=== PATIENT | male | born 1940 | race Caucasian/White ===

== ENCOUNTER → 2017-09-30 | Outpatient (CLI) | payer MEDICARE, OTHER ==
[~2017-09-30] VITALS: Ht 157.5 cm; Wt 70.0 kg
[~2017-09-30] MED LIST: AMARYL 2MG T2 MG/TAB PO; CHOLESTEROL MA600 MG PO; CRANBERRY1 CAP PO; GLUCOPHAGE XR500 M2 PO; JANUVIA25 MG; METFORMIN500 MG PO; NATURE'S BLEND400 I1 PO; [UNRECOGNIZED DRUG - REMARK] PO
[2017-09-30 10:15] VITALS: BP 135/64
[2017-09-30 10:34] LABS: EOS # 0.1 (0.04-0.40); EOS % 1.7 % (0.0-4.0); HEMOGLOBIN 14.2 g/dL (13.5-18.0); LYMPH# 0.9 (1.50-4.00); MEAN CELL VOLUME 91 fl (78-100); MEAN CORPUSCULAR HEMOGLOBIN 31 pg (27-31); MEAN CORPUSCULAR HGB CONC 35 g/dL (33-37); MEAN PLATELET VOLUME 9.5 fl (7.4-10.4); MONO # 0.5 (0.20-0.80); NEU # 3.9 (1.40-6.50); PLATELET COUNT 171 K/mm3 (130-400); RED BLOOD COUNT 4.53 M/mm3 (4.20-5.60); RED CELL DISTRIBUTION WIDTH 12.4 % (11.5-14.5); WHITE BLOOD COUNT 5.4 K/mm3 (4.8-10.8)
[2017-09-30 10:40] LABS: ALBUMIN 4.2 g/dL (3.5-5.0); CALCIUM 9.3 mg/dL (8.4-10.2); POTASSIUM 3.9 mmol/L (3.6-5.0); TOTAL BILIRUBIN 0.7 mg/dL (0.2-1.3); TOTAL PROTEIN 6.9 g/dL (6.3-8.2)
[2017-09-30 11:10] LABS: PH-URINE 6.5 (5.0 - 8.0); URINE APPEARANCE CLEAR; URINE BILIRUBIN NEGATIVE (NEGATIVE); URINE BLOOD NEGATIVE (NEGATIVE); URINE COLOR YELLOW; URINE KETONE NEGATIVE (NEGATIVE); URINE LEUKOCYTE ESTERASE NEGATIVE (NEGATIVE); URINE NITRATE NEGATIVE (NEGATIVE); URINE PROTEIN(semi-quant) NEGATIVE (NEGATIVE); URINE UROBILINOGEN NORMAL (NORMAL); URINE WBC 0-1 /hpf (0-3)
[2017-09-30 11:45] LABS: ERYTHROCYTE SEDIMENTATION RATE 8 mm/hr (0-20)
[2017-09-30 23:53] LABS: CREATININE OTHER SOURCE 20 mg/dL (())
== END ==
LOC: LAB 09:55
PROVIDERS: Internal Medicine
DX: E11.9 Type 2 diabetes mellitus without complications (principal); Z12.5 Encounter for screening for malignant neoplasm of prostate; Z12.11 Encounter for screening for malignant neoplasm of colon; E78.5 Hyperlipidemia, unspecified

== ENCOUNTER → 2018-03-23 | Outpatient (CLI) | payer MEDICARE, OTHER ==
[2017-09-30 10:15] VITALS: BP 135/64
[2018-03-23 11:37] LABS: EOS # 0.1 (0.04-0.40); EOS % 1.6 % (0.0-4.0); HEMATOCRIT 40.3 % (42.0-52.0); HEMOGLOBIN 14.2 g/dL (13.5-18.0); MEAN CELL VOLUME 90 fl (78-100); MEAN CORPUSCULAR HEMOGLOBIN 32 pg (27-31); MEAN CORPUSCULAR HGB CONC 35 g/dL (33-37); MEAN PLATELET VOLUME 9.1 fl (7.4-10.4); MONO # 0.6 (0.20-0.80); NEU # 4.1 (1.40-6.50); PLATELET COUNT 175 K/mm3 (130-400); RED BLOOD COUNT 4.48 M/mm3 (4.20-5.60); RED CELL DISTRIBUTION WIDTH 12.1 % (11.5-14.5); WHITE BLOOD COUNT 5.8 K/mm3 (4.8-10.8)
[2018-03-23 11:50] LABS: ALBUMIN 4.2 g/dL (3.5-5.0); BUN/CREATININE RATIO 9.4 (6.0-26.0); CALCIUM 8.8 mg/dL (8.4-10.2); POTASSIUM 4.4 mmol/L (3.6-5.0); TOTAL BILIRUBIN 0.4 mg/dL (0.2-1.3); TOTAL PROTEIN 7.1 g/dL (6.3-8.2)
== END ==
LOC: LAB 11:04
PROVIDERS: Internal Medicine
DX: E11.9 Type 2 diabetes mellitus without complications (principal); E78.5 Hyperlipidemia, unspecified; M47.812 Spondylosis without myelopathy or radiculopathy, cervical region

== ENCOUNTER → 2021-05-13 | Outpatient (CLI) | payer MEDICARE, OTHER ==
[2021-05-13 15:03] LABS: BASO # 0.06 (0.02-0.10); EOS # 0.15 (0.04-0.40); EOS % 2.5 % (0.0-4.0); HEMATOCRIT 40.8 % (42.0-52.0); HEMOGLOBIN 14.3 g/dL (13.5-18.0); LYMPH# 1.27 (1.50-4.00); MEAN CELL VOLUME 88 fl (78-100); MEAN CORPUSCULAR HEMOGLOBIN 31 pg (27-31); MEAN CORPUSCULAR HGB CONC 35 g/dL (33-37); MEAN PLATELET VOLUME 8.6 fl (7.4-10.4); MONO # 0.45 (0.20-0.80); NEU # 4.17 (1.40-6.50); PLATELET COUNT 201 K/mm3 (130-400); RED BLOOD COUNT 4.64 M/mm3 (4.20-5.60); RED CELL DISTRIBUTION WIDTH 12.2 % (11.5-14.5); WHITE BLOOD COUNT 6.1 K/mm3 (4.8-10.8)
[2021-05-13 15:22] LABS: ALBUMIN 4.2 g/dL (3.4-4.8); POTASSIUM 3.9 mmol/L (3.5-5.1)
[2021-05-13 15:23] LABS: CALCIUM 9.2 mg/dL (8.3-10.5)
[2021-05-13 15:25] LABS: TOTAL PROTEIN 6.9 g/dL (6.2-8.1)
[2021-05-13 15:26] LABS: TOTAL BILIRUBIN 0.4 mg/dL (0.2-1.2)
[2021-05-13 15:31] LABS: MAGNESIUM 1.93 mg/dL (1.60-2.60)
[2021-05-13 16:23] LABS: PH-URINE 5.5 (5.0 - 8.0); URINE APPEARANCE CLEAR; URINE BILIRUBIN NEGATIVE (NEGATIVE); URINE BLOOD NEGATIVE (NEGATIVE); URINE COLOR LIGHT YELLOW; URINE KETONE NEGATIVE (NEGATIVE); URINE LEUKOCYTE ESTERASE NEGATIVE (NEGATIVE); URINE NITRATE NEGATIVE (NEGATIVE); URINE PROTEIN(semi-quant) TRACE mg/dL (NEGATIVE); URINE UROBILINOGEN NORMAL (NORMAL); URINE WBC 0-1 /hpf (0-3)
[2021-05-13 23:22] LABS: CREATININE OTHER SOURCE 34 mg/dL (())
== END ==
LOC: RAD 14:38
PROVIDERS: Internal Medicine
DX: Z01.818 Encounter for other preprocedural examination (principal); Z12.5 Encounter for screening for malignant neoplasm of prostate; R00.1 Bradycardia, unspecified; I44.4 Left anterior fascicular block; E78.2 Mixed hyperlipidemia; E11.9 Type 2 diabetes mellitus without complications

== ENCOUNTER → 2021-08-14 | Outpatient (CLI) | payer MEDICARE, OTHER ==
[2021-08-14 11:50] LABS: ALBUMIN 3.8 g/dL (3.4-4.8)
[2021-08-14 11:51] LABS: POTASSIUM 4.6 mmol/L (3.5-5.1)
[2021-08-14 11:52] LABS: CALCIUM 9.7 mg/dL (8.3-10.5)
[2021-08-14 11:53] LABS: TOTAL PROTEIN 6.6 g/dL (6.2-8.1)
[2021-08-14 11:55] LABS: TOTAL BILIRUBIN 0.4 mg/dL (0.2-1.2)
== END ==
LOC: LAB 10:24
PROVIDERS: Internal Medicine
DX: E11.9 Type 2 diabetes mellitus without complications (principal); M25.331 Other instability, right wrist

== ENCOUNTER 2021-10-23 13:28 | Inpatient (IN) | payer MEDICARE, OTHER ==
[~2021-10-23] VITALS: Wt 63.8 kg
[2021-10-23] VITALS (10 sets, daily range): BP systolic 107–167; BP diastolic 48–97
[~2021-10-23 13:28] MED LIST changes: +PREDNISOLONE ACE5 M1 OP; +TOBRAMYCIN AND D5 ML OP
--- NOTE | 2021-10-23 15:00 | NUR ---
Pt admitted to room 208. Pt is alert to self only. Difficult to understand and unable follow commands. Pt is hard of hearing. Has 1 hearing aide in. IV infusing to right forearm. tele shows Afib RVR. Oxygen on at 2L n/c. Temp 103.6. Buttock red and excoriated with 2 open areas. Steph Klein updated on patient. Pt friend Dima and brother Galileo updated on pt status and plan of care. Dima reports that pt has made prior arrangements and should things take a turn for the worst arrangements have been made with [facility] in [place].
--- NOTE | 2021-10-23 16:00 | NUR ---
Pt continues to be restless and fidgeting. Wont leave on pulse ox or tele. Pulling on beauchamp. SP02 88% on 2L. Increased to 5Lnc and SP02 up to 94%. Steph Klein updated on pt status and vital signs
[2021-10-24] VITALS (9 sets, daily range): BP systolic 97–136; BP diastolic 50–77
--- NOTE | 2021-10-24 04:48 | NUR ---
PATIENT HAS BEEN SLEEPING SOUNDLY SINCE ABOUT MIDNIGHT, SATS HAVE CONSISTENTLY RUN IN THE UPPER 90's SO NURSE HAS BEEN SLOWLY TURNING DOWN HIS OXYGEN, STARTED ABOUT MIDNIGHT AT 5L/NC, NOW IS AT 2L/NC AND SATS REMAIN 96%, PATIENT JUST WOKE UP A LITTLE AND TALKED WITH NURSE, HE ASKS "WHERE AM I?" NURSE TELLS HIM WHERE HE IS AND WHAT IS GOING ON, HE TAKES HIS INHALER AND A SIP OF WATER AND THEN DOZES BACK OFF BUT THIS IS THE FIRST TIME THIS SHIFT HE HAS SAID ANYTHING THAT MADE ANY SENSE, MENTATION SEEMS TO BE IMPROVING ALONG WITH HIS DECREASED HEART RATE, AFEBRILE AND DECREASED OXYGEN NEEDS THIS MORNING, HIS ROOMMATE CALLED ABOUT AN HOUR AGO FOR AN UPDATE ON PATIENTS STATUS, UPDATE PROVIDED, CALL LIGHT WITHIN REACH, IV FLUIDS INFUSING WITHOUT DIFFICULTY, SIDE RAILS UP X 3 AND BED ALARM ON, WILL CONTINUE TO MONITOR CLOSELY
[2021-10-24 07:51] LABS: HEMATOCRIT 34.9 % (42.0-52.0); HEMOGLOBIN 11.9 g/dL (13.5-18.0); MEAN CELL VOLUME 90 fl (78-100); MEAN CORPUSCULAR HEMOGLOBIN 31 pg (27-31); MEAN CORPUSCULAR HGB CONC 34 g/dL (33-37); MEAN PLATELET VOLUME 8.7 fl (7.4-10.4); PLATELET COUNT 179 K/mm3 (130-400); RED BLOOD COUNT 3.88 M/mm3 (4.20-5.60); WHITE BLOOD COUNT 12.9 K/mm3 (4.8-10.8)
[2021-10-24 08:10] LABS: CALCIUM 8.7 mg/dL (8.3-10.5)
--- NOTE | 2021-10-24 08:57 | NUR ---
Patient resting in bed. A&Ox4, 2L O2 per NC. Dyspnea upon exertion and while talking to this nurse. Education regarding IS given. Patient understands teaching by demonstrating proper technique. IS goal of 500. Reports he remembers using the device in [place]. Roomate called for update. Patient notified. Patient reports feeling tired and does not recall last few day's activities. Hard of hearing. Bed in lowest and locked position. Call light within reach.
[2021-10-24 09:03] LABS: BAND 45 % (0-10); LYMPHOCYTE 3 % (20-51); MONOCYTE 7 % (3-10); NEUTROPHILS 45 % (42-75)
--- NOTE | 2021-10-24 10:00 | NUR ---
O2 Sat 93% on RA. O2 removed. Cont. Pulse oximeter on telemetry for continued monitoring.
--- NOTE | 2021-10-24 19:00 | NUR ---
Report received from Jessica JEFF.
--- NOTE | 2021-10-24 21:15 | NUR ---
Patient rests in bed. Alert to self and in a hospital. Speech difficult to understand and frequent repitition required. Hand e commerce retailer moderate and equal. Nance draining clear yellow urine.
--- NOTE | 2021-10-25 02:30 | NUR ---
Patient resting awake in bed. Repositioned up in bed and to left side. White skin sores noted to each side of inner buttucks and redness. Cath care and viktoriya-care provided. New attends applied and buttucks left open to air.
[2021-10-25 02:41] VITALS: BP 125/65
[2021-10-25 05:39] VITALS: BP 135/63
[2021-10-25 09:10] LABS: HEMATOCRIT 32.4 % (42.0-52.0); HEMOGLOBIN 11.2 g/dL (13.5-18.0); MEAN CELL VOLUME 89 fl (78-100); MEAN CORPUSCULAR HEMOGLOBIN 31 pg (27-31); MEAN CORPUSCULAR HGB CONC 35 g/dL (33-37); MEAN PLATELET VOLUME 9.4 fl (7.4-10.4); PLATELET COUNT 220 K/mm3 (130-400); RED BLOOD COUNT 3.64 M/mm3 (4.20-5.60)
[2021-10-25 09:16] LABS: POTASSIUM 3.8 mmol/L (3.5-5.1)
[2021-10-25 09:17] LABS: CALCIUM 8.7 mg/dL (8.3-10.5)
[2021-10-25 10:02] LABS: BAND 17 % (0-10); LYMPHOCYTE 4 % (20-51); MONOCYTE 3 % (3-10); NEUTROPHILS 76 % (42-75)
--- NOTE | 2021-10-25 10:15 | NUR ---
Awake and yelling aloud, stating that he saw mice. Reassured patient that nomice are seen. Re-oriented to place, time, purpose. After administration of dexamethazone. while flushing INT to L forearm, noticed some drainage. Extension tubing was loose from insertion cath; will eval. and remove as indicated. Floey to DD noting clear light yellow urine. Pt has red, excoriated area to buttocks & sacral area. Provided careful viktoriya-anal care following incontinent stool (small amount dark green color, semi-formed). Applied moisture barrier ointment to areas. Positioned patient onto side with pillows. Call light and needed items in reach.
[2021-10-25 10:24] VITALS: BP 122/56
[2021-10-25 14:19] VITALS: BP 133/58
--- NOTE | 2021-10-25 14:43 | NUR ---
IV removed from previous site in L forearm due to drainage at site. No errythema or edema. New site to L wrist with #22 Ga x1 attempt. Pt caleb. well. IV antibiotic administered. Cont. to monitor. Dr. Kearns recently d/c'ed fluid restriction.
[2021-10-25 17:48] VITALS: BP 143/82
--- NOTE | 2021-10-25 19:00 | NUR ---
Report received from Lakia CHAPMAN.
--- NOTE | 2021-10-25 20:02 | NUR ---
Assisted patient out of bed x2 this shift. Pt cooperative; unsteady on his feet. He remains confused, disoriented, and occasionally visual hallucinations (reports seeing mice on the ceiling). Report given to oncoming shift nurseSonya.
--- NOTE | 2021-10-25 20:30 | NUR ---
IMMIGRATION CASE WORKER assisted patient to the bathroom with frequent verbal cueing. No BM. Patient able to mostly rest self slowly back in bed. Alert to self but very [place] and unable to understand/hear nurse tonight to answer orientation questions. Patients speech hard to understand. Denies pain. Barrier cream applied to buttucks and assisted to reposition on side.
--- NOTE | 2021-10-25 22:00 | NUR ---
Dr. Kearns into see patient.
[2021-10-25 22:28] VITALS: BP 148/75
--- NOTE | 2021-10-26 01:07 | NUR ---
Patient attempting to get out of bed and alarm alarming. Pulling on catheter and reviewed it's draining his bladder/would cause pain or injury if pulled out. Up 2 standby, contact guard assist slowly with frequent verbal cueing to the bathroom and has med bm and assisted back to bed. Bedalarms on. Gait slow and leaned back when walking.
[2021-10-26 02:04] VITALS: BP 156/73
--- NOTE | 2021-10-26 04:48 | NUR ---
Patient has been resting quietly in bed. Respirations with ease.
[2021-10-26 05:49] VITALS: BP 167/92
--- NOTE | 2021-10-26 05:52 | NUR ---
Dima called and update given and informed that patient asking frequently for hearing aid batteries. Dima states he'll bring in batteries and his glasses and will take dirty clothes home.
[2021-10-26 08:12] LABS: HEMATOCRIT 33.4 % (42.0-52.0); HEMOGLOBIN 11.6 g/dL (13.5-18.0); MEAN CELL VOLUME 88 fl (78-100); MEAN CORPUSCULAR HEMOGLOBIN 31 pg (27-31); MEAN CORPUSCULAR HGB CONC 35 g/dL (33-37); MEAN PLATELET VOLUME 9.3 fl (7.4-10.4); PLATELET COUNT 216 K/mm3 (130-400); RED CELL DISTRIBUTION WIDTH 11.8 % (11.5-14.5); WHITE BLOOD COUNT 9.3 K/mm3 (4.8-10.8)
[2021-10-26 08:25] LABS: POTASSIUM 3.8 mmol/L (3.5-5.1)
[2021-10-26 08:26] LABS: CALCIUM 8.6 mg/dL (8.3-10.5)
[2021-10-26 08:44] LABS: BAND 2 % (0-10); LYMPHOCYTE 6 % (20-51); MONOCYTE 6 % (3-10); NEUTROPHILS 85 % (42-75)
[2021-10-26 09:32] VITALS: BP 179/80
[2021-10-26 13:53] VITALS: BP 165/77
--- NOTE | 2021-10-26 17:00 | NUR ---
REPORT RECEIVED FROM TOMER VINSON.
[2021-10-26 18:00] VITALS: BP 163/72
--- NOTE | 2021-10-26 20:00 | NUR ---
PATIENT PLEASENTLY CONFUSED. CONTINUES TO TELL STAFF HE IS LEAVING. PATIENT CONTINUES TO GET OUT OF BED AND CHAIR WITHOUT CALLING FOR HELP. PATIENT EDUCATED ON USE OF CALL LIGHT. BED AND CHAIR ALARMS IN USE. PATIENT DENIES NEEDS OR COMPLAINTS AT THIS TIME. PATIENT CURRENTLY LAYING IN BED WITH TV ON. BED IN LOWEST LOCKED POSTION, ALARM ON, CALL LIGHT WITHIN REACH.
[2021-10-26 21:49] VITALS: BP 178/79
--- NOTE | 2021-10-26 22:50 | NUR ---
REPORT GIVEN TO ARI PRICE.
--- NOTE | 2021-10-26 23:24 | NUR ---
Report from Demetris CHAPMAN. Patient sets off bed alarm. REAL ESTATE SUBAGENT to room, patient observed sitting on EOB with Telemetry in hand. He had taken off patches. Patient states "I'm not going to wear this.". Telemetry was reapplied and patient educated on need to monitor his heart but patient remains confused.
--- NOTE | 2021-10-27 00:10 | NUR ---
Per report from previous nurse, patient not wearing continuous pulse ox. He would not leave it on his finger.
[2021-10-27 01:45] VITALS: BP 175/78
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
--- NOTE | 2021-10-27 02:42 | NUR ---
Sets off bed alarm. This nurse and ORDER CHECKER to room. Patient attempting to get OOB but when staff arrives refuses to get OOB to go to BR. Accusing staff of "wanting all my money". "you aren't going to get my money". Staff unable to reorient patient to place/situation. Patient positioned in bed. Bed alarm on. Call light in reach.
--- NOTE | 2021-10-27 04:09 | NUR ---
Refuses inhaler, does not want to be "messed with" or "woken up".
[2021-10-27 06:24] VITALS: BP 167/70
--- NOTE | 2021-10-27 07:05 | NUR ---
Report to Jessica JEFF.
[2021-10-27 08:47] LABS: HEMATOCRIT 35.9 % (42.0-52.0); HEMOGLOBIN 12.5 g/dL (13.5-18.0); MEAN CELL VOLUME 88 fl (78-100); MEAN CORPUSCULAR HEMOGLOBIN 31 pg (27-31); MEAN CORPUSCULAR HGB CONC 35 g/dL (33-37); MEAN PLATELET VOLUME 9.1 fl (7.4-10.4); PLATELET COUNT 221 K/mm3 (130-400); RED BLOOD COUNT 4.06 M/mm3 (4.20-5.60); WHITE BLOOD COUNT 8.3 K/mm3 (4.8-10.8)
[2021-10-27 09:01] LABS: CALCIUM 8.6 mg/dL (8.3-10.5)
[2021-10-27 09:02] LABS: TOTAL PROTEIN 5.3 g/dL (6.2-8.1)
[2021-10-27 09:04] LABS: TOTAL BILIRUBIN 0.4 mg/dL (0.2-1.2)
[2021-10-27 09:12] LABS: BAND 2 % (0-10); LYMPHOCYTE 8 % (20-51); MONOCYTE 10 % (3-10); NEUTROPHILS 80 % (42-75)
[2021-10-27 10:50] VITALS: BP 149/71
[2021-10-27] MEDS ORDERED: RT ALBUTEROL CC18 GM IH ×2 (11:08→11:58)
[2021-10-27] MEDS ORDERED: DECADRON6 M1 PO ×2 (11:08→11:58)
[2021-10-27] MEDS ORDERED: MORGIDOX 1X100100 MG PO ×2 (11:08→11:58)
--- NOTE | 2021-10-27 11:09 | NUR ---
Patient A&O to self and place, disoriented to situation and time. No c/o pain or discomfort. Reports he didn't sleep well last night. Eager to go home today. x1 assist with AM cares and bed bath. Personal clothes applied. Skin CDI. Ambulated x1 assist from bathroom to chair. Chair in lowest and locked position. Call light within reach.
[2021-10-27] MEDS ORDERED: XARELTO20 MG PO (11:58)
--- NOTE | 2021-10-27 13:30 | NUR ---
Patient A&Ox4, RA, no c/o pain or discomfort. Patient discharged home by car. Transported by w/c to car. SBA into car. All personal belongings sent with patient. Dishcarge instructions given to roommate.
== END 2021-10-27 13:45 | disposition home or self-care (01) | DRG 177 ==
LOC: MED/SURG 13:28
PROVIDERS: Family Medicine; Physician Assistant; ADMIT Nurse Practitioner
PROC: XW033E5 Introduction of Remdesivir Anti-infective into Peripheral Vein, Percutaneous Approach, New Technology Group 5 (ICD-10-PCS; principal; 2021-10-23)
DX: U07.1 COVID-19 (principal); J12.82 Pneumonia due to coronavirus disease 2019; K90.9 Intestinal malabsorption, unspecified; E87.1 Hypo-osmolality and hyponatremia; N40.0 Benign prostatic hyperplasia without lower urinary tract symptoms; H26.9 Unspecified cataract; H91.93 Unspecified hearing loss, bilateral; E78.2 Mixed hyperlipidemia; E66.9 Obesity, unspecified; E11.9 Type 2 diabetes mellitus without complications; E86.0 Dehydration; E55.9 Vitamin D deficiency, unspecified; Z90.49 Acquired absence of other specified parts of digestive tract; Z79.891 Long term (current) use of opiate analgesic; Z88.2 Allergy status to sulfonamides
CPT/HCPCS: J0248; J0696; J1100; J1650; J2060; J7050

== ENCOUNTER → 2021-11-13 | Outpatient (CLI) | payer MEDICARE, OTHER ==
[~2021-11-13] MED LIST changes: +DECADRON6 M1 PO; +MORGIDOX 1X100100 MG PO; +RT ALBUTEROL CC18 GM IH; +XARELTO20 MG PO
[2021-11-13 10:49] LABS: BASO # 0.04 K/mm3 (0.02-0.10); EOS # 0.04 K/mm3 (0.04-0.40); EOS % 0.4 % (0.0-4.0); HEMATOCRIT 39.7 % (42.0-52.0); HEMOGLOBIN 12.9 g/dL (13.5-18.0); MEAN CELL VOLUME 94 fl (78-100); MEAN CORPUSCULAR HEMOGLOBIN 30 pg (27-31); MEAN CORPUSCULAR HGB CONC 33 g/dL (33-37); MEAN PLATELET VOLUME 9.3 fl (7.4-10.4); MONO # 0.71 K/mm3 (0.20-0.80); NEU # 8.31 K/mm3 (1.40-6.50); PLATELET COUNT 184 K/mm3 (130-400); RED BLOOD COUNT 4.24 M/mm3 (4.20-5.60); RED CELL DISTRIBUTION WIDTH 13.3 % (11.5-14.5); WHITE BLOOD COUNT 10.1 K/mm3 (4.8-10.8)
[2021-11-13 10:54] LABS: POTASSIUM 4.3 mmol/L (3.5-5.1)
[2021-11-13 10:55] LABS: ALBUMIN 3.8 g/dL (3.4-4.8)
[2021-11-13 10:56] LABS: CALCIUM 9.3 mg/dL (8.3-10.5)
[2021-11-13 10:57] LABS: TOTAL PROTEIN 6.3 g/dL (6.2-8.1)
[2021-11-13 10:59] LABS: TOTAL BILIRUBIN 0.6 mg/dL (0.2-1.2)
== END ==
LOC: LAB 10:09
PROVIDERS: Internal Medicine
DX: U07.1 COVID-19 (principal); E78.2 Mixed hyperlipidemia; E11.9 Type 2 diabetes mellitus without complications; K90.9 Intestinal malabsorption, unspecified; I48.0 Paroxysmal atrial fibrillation; E55.9 Vitamin D deficiency, unspecified; E53.8 Deficiency of other specified B group vitamins; M25.531 Pain in right wrist

== ENCOUNTER → 2021-11-27 | Outpatient (CLI) | payer MEDICARE, OTHER | LOC: CARDREHAB 08:19 | DX: I48.0 Paroxysmal atrial fibrillation (principal) | CPT/HCPCS: A9500 ==

== ENCOUNTER → 2021-11-27 | Outpatient (CLI) | payer MEDICARE, OTHER | LOC: RAD 11:00 → VAS 11:05 | DX: I48.0 Paroxysmal atrial fibrillation (principal) ==

== ENCOUNTER → 2021-12-22 | Outpatient (CLI) | payer MEDICARE, OTHER | LOC: AMSURD 07:51 | DX: I48.0 Paroxysmal atrial fibrillation (principal) ==

== ENCOUNTER → 2022-04-05 | Outpatient (CLI) | payer MEDICARE, OTHER ==
[2022-04-05 09:40] LABS: BASO # 0.06 K/mm3 (0.02-0.10); EOS # 0.15 K/mm3 (0.04-0.40); EOS % 1.9 % (0.0-4.0); HEMATOCRIT 36.4 % (42.0-52.0); HEMOGLOBIN 12.2 g/dL (13.5-18.0); LYMPH# 0.91 K/mm3 (1.50-4.00); MEAN CELL VOLUME 91 fl (78-100); MEAN CORPUSCULAR HEMOGLOBIN 31 pg (27-31); MEAN CORPUSCULAR HGB CONC 34 g/dL (33-37); MEAN PLATELET VOLUME 8.9 fl (7.4-10.4); MONO # 0.46 K/mm3 (0.20-0.80); NEU # 6.45 K/mm3 (1.40-6.50); PLATELET COUNT 219 K/mm3 (130-400)
[2022-04-05 09:49] LABS: ALBUMIN 4.2 g/dL (3.4-4.8); POTASSIUM 4.1 mmol/L (3.5-5.1)
[2022-04-05 09:50] LABS: CALCIUM 9.7 mg/dL (8.3-10.5)
[2022-04-05 09:52] LABS: TOTAL PROTEIN 6.4 g/dL (6.2-8.1)
[2022-04-05 09:53] LABS: TOTAL BILIRUBIN 0.4 mg/dL (0.2-1.2)
== END ==
LOC: RAD 09:23 → LAB 09:23
PROVIDERS: Internal Medicine
DX: M25.511 Pain in right shoulder (principal); M79.641 Pain in right hand; E53.8 Deficiency of other specified B group vitamins; E78.2 Mixed hyperlipidemia; E11.9 Type 2 diabetes mellitus without complications; K90.9 Intestinal malabsorption, unspecified; R41.82 Altered mental status, unspecified; I48.0 Paroxysmal atrial fibrillation

== ENCOUNTER → 2022-04-07 | Outpatient (CLI) | payer MEDICARE, OTHER | LOC: RAD 04-06 10:30 | DX: R41.82 Altered mental status, unspecified (principal) | CPT/HCPCS: Q9967 ==